=== PATIENT | male | born 1955 | race Caucasian/White ===

== ENCOUNTER 2016-08-31 13:27 | Inpatient (IN) | payer MEDICAID, OTHER ==
[2016-08-31 13:51] VITALS: BMI 37.7
[2016-08-31] MEDS ORDERED: SOLU-MEDROL 125 MG VIAL ONE (14:07)
[2016-08-31] MEDS ORDERED: DUONEB 0.5 MG/3 MG ONE (14:07)
[2016-08-31] MEDS ORDERED: SOLU-MEDROL 125 MG VIAL IVP ONE (14:10)
[2016-08-31] MEDS ORDERED: DUONEB 0.5 MG/3 MG NEB ONE (14:10)
--- NOTE | 2016-08-31 14:15 | DR.GENAD ---
HPI - Complaint/Symptoms Chief Complaint Doctors Comments: Patient complains of problems breathing for the past eight hours with SOB but denies fever, chills, nausea, or vomiting. States he has been having pain in his lungs in the xiphoid area. States he is a patient of Dr. Gallegos and he has had his flu shot last year but none this year. States he had an albuterol treatment before coming to the emergency room. He denies tobacco or alcohol usage. States he had a stroke in May 2016 and he has left sided weakness and cannot walk. Chief Complaint:: PT STATES " I HAVE BEEN SOB , AND MY NECK IS HURTING PT DENIES ANY INJURY 02 PLACED PER EMS 02 REMOVED. PT IS SATURATION IS 97 ON RA,, AT BEDSIDE NO DISTRESS NOTED.. - Nurses notes reviewed Nurses Notes Review: Yes - Source History Provided: Family Member, EMS - Mode of Arrival Mode of Arrival: Stretcher - Timing Onset of Chief Complaint: 08/31/16 Came on: Gradually - Duration Duration: Constant How lon Duration: Hours - Location Location: xiphoid discomfort - Severity Severity: Moderate - Modifying Factors Worsens:: cough Improves:: nothing PMH - PMH Past Medical History: Yes Past Medical History: Angina, Anxiety, Asthma, COPD, Coronary Artery Disease, CVA, Depression, Diabetes, Dyslipidemia, GERD, Hypertension, [place] Past Surgical History: Yes Surgical History: Angioplasty/Stents, Appendectomy - Family History History of Family Medical Conditions: Yes Family Medical History: Diabetes Mellitus, Cancer, [place], Coronary Artery Disease, Heart Failure, Hypertension - Social History Does patient currently use any type of tobacco product: No Have you used tobacco products in the last 12 months: No Type of Tobacco Use: None Does any household member use tobacco: No Alcohol Use: None Do you use any recreational Drugs:: No Lives With: Family Lives Where: Home - infectious screening In the last 2 months have you had wt loss of >10#?: NO Have you had fever, night sweats or hemotysis?: No Have you traveled outside the country in the last 6 months?: No Isolation: Standard ROS - Review of Systems Constitutional: No Symptoms Reported. negative: See HPI, Chills, Diaphoresis, Fever, Malaise, Weakness, Irritable, Fatigue, Loss of Appetite, Other Eyes: No Symptoms Reported ENTM: No Symptoms Reported. negative: See HPI, Ear Pain, Ear Discharge, Pulling on Ears, Hearing Loss, Nose Pain, Nose Discharge, Epistaxis, Nose Congestion, Mouth Pain, Mouth Swelling, Loose Teeth, Drooling, Throat Pain, Throat Swelling, Ear Foreign Body Respiratoy: Non-Productive Cough, Short of Breath, Wheezing. negative: No Symptoms Reported, See HPI, Productive Cough, Moist Cough, Dry Cough, Hacking Cough, Barking Cough, Brassy Cough, Orthopnea, Stridor, Hemoptysis, Other Cardiovascular: No Symptoms Reported, Chest Pain. negative: See HPI, Edema, Palpitations, Syncope, Cyanosis, Skin Mottling, Other Gastrointestinal/Abdominal: No Symptoms Reported. negative: See HPI, Abdominal Pain, Constipation, Diarrhea, Nausea, Vomiting, Food Intolerance, Other Genitourinary: No Symptoms Reported Neurological: No Symptoms Reported, Problems Walking (left side weak and cannot walk) Musculoskeletal: No Symptoms Reported Integumentary: No Symptoms Reported. negative: See HPI, Change in Color, Change in Hair/Nails, Dryness, Lesions, Lumps, Rash, Itching, Wound, Bruises, Juandice, Other Hematologic/Lymphatic: No Symptoms Reported. negative: See HPI, Anemia, Blood Clots, Easy Bleeding, Easy Bruising, Swollen Glands, Lymphadenopathy, Other Endocrine: No Symptoms Reported Psychiatric: No Symptoms Reported PE - Vital Signs Vitals: Temperature 97.7 F Pulse Rate 51 Respiratory Rate 20 Blood Pressure [Left Arm] 129/63 Blood Pressure 147/72 O2 Sat by Pulse Oximetry 94 - General Limitations: No Limitations General Appearance: Alert, In Distress (moderate), Obese. negative: In No Apparent Distress, Appears Intoxicated, Anxious, Lethargic, Obtunded, Cachectic , Other - Head Head Exam: Normal Inspection, Atraumatic, Normocephalic - Eyes Eye exam: Normal Appearance, PERRL, EOMI. negative: Scleral Icterus, Conjunctival Injection, Nystagmus, Miosis, Mydrasis, Periorbital Swelling, Periorbital Tenderness, Other - ENT ENT Exam: Normal Exam, Normal Oropharynx, Normal External Ear Exam, Mucous Membranes Moist, TM's Normal Bilaterally External Ear Exam: Normal External Inspection TM/Canal Exam: Bilateral Normal Nose Exam: Normal Nose Exam Mouth Exam: Normal Inspection. negative: Drooling, Trismus, Lip Swelling, Tongue Elevation, Tongue Swelling, Laceration, Other Throat Exam: Normal Inspection. negative: Tonsillar Erythema, Tonsillomegaly, Tonsillar Exudate, R Peritonsillar Mass, L Peritonsillar Mass, Muffled Voice, Other - Neck Neck Exam: Normal Inspection, Full ROM, Trachea Midline. negative: Tenderness, Meningismus, Lymphadenopathy, Thyromegaly, Other - Chest Chest Inspection: Normal Inspection, Symmetric Chest Wall Rise - Respiratory Respiratory Exam: Normal Lung Sounds Bilat Respiratory Exam: Bilateral Wheezing, Bilateral Decreased Breath Sounds - Cardiovascular Cardiovascular Exam: Regular Rate, Normal Rhythm, Normal Heart Sounds, Systolic Murmur - Abdominal Exam Abdominal Exam: Normal Inspection, Normal Bowel Sounds, Soft. negative: Distention, Tenderness, Guarding, Rebound, Rigidity, Dimnished Bowel Sounds, Hyperactive Bowel Sounds, Hypoactive Bowel Sounds, Organomegaly, Trauma, Incision, Ascites, Mass, Bruit, Pulsatile Mass, Hernia, Other Abdominal Tenderness: negative: RUQ, RLQ, LUQ, LLQ, Epigastrium, Suprapubic, Diffuse, Mild, Moderate, Severe, Other - Extremities Extremities Exam: Normal Inspection, Full ROM, Normal Capillary Refill. negative: Tenderness - Back Back Exam: Normal Inspection, Full ROM. negative: Tenderness, (R) CVA Tenderness, (L) CVA Tenderness, Muscle Spasm, Paraspinal Tenderness, Vertebral Tenderness, Rashes, (R) Sciatic Notch Tenderness, (L) Sciatic Notch Tendern, (R ) Straight Leg Raise, (L) Straight Leg Raise, Other - Neurologic Neurological Exam: Alert, Oriented X3, CN II-XII Intact, Motor Sensory Deficit ( left lower leg weakness strength 3/5 can lift leg off bend ), Reflexes Normal. negative: Normal Gait (gait not tested) - Psychiatric Psychiatric Exam: Normal Affect, Normal Mood - Skin Skin Exam: Warm, Dry, Intact, Normal Color. negative: Rash, Cyanosis, Diaphoresis, Erythema, Pallor, Mottled, Other Course - Consultation Called: 16:51 Call Returned: 16:51 (Dr. Madera to admit) - Education/Counseling Education/Counseling: Patient Educated On: Treatment, Diagnosis, Prognosis, Needs for Follow Up (Patient agrees to CTA of chest but went home and he is unable to sign due to stroke and weakness in his hands.) ROR - Labs Reviewed Laboratory Results Reviewed?: Yes (all labs and x-ray results reviewed and discussed with patient) Result Diagrams: 08/31/16 14:15 08/31/16 14:15 Laboratory: WBC 6.5 X10^3/uL (3.6-10.0) 08/31/16 14:15 RBC 4.08 X10^6/uL (4.7-6.0) L 08/31/16 14:15 Hgb 12.0 g/dL (13.5-18.0) L 08/31/16 14:15 Hct 35.7 % (42.0-54.0) L 08/31/16 14:15 MCV 87.4 fL (80.0-100.0) 08/31/16 14:15 MCH 29.5 pg (27.0-34.0) 08/31/16 14:15 MCHC 33.8 g/dL (33.0-35.0) 08/31/16 14:15 RDW 14.4 % (11.6-16.5) 08/31/16 14:15 Plt Count 154 X10^3/uL (150.0-450.0) 08/31/16 14:15 MPV 8.5 fL (7.4-11.0) 08/31/16 14:15 Neut % 49.3 % (42.0-75.0) 08/31/16 14:15 Lymph % 33.8 % (21.0-51.0) 08/31/16 14:15 [place] % 9.4 % (0.0-13.0) 08/31/16 14:15 Eos % 6.2 % (0.9-2.9) H 08/31/16 14:15 Baso % 1.3 % (0.2-1.0) H 08/31/16 14:15 Neut # 3.2 x10^3/uL (2.2-4.8) 08/31/16 14:15 Lymph # 2.2 X10^3/uL (1.3-2.9) 08/31/16 14:15 [place] # 0.6 x10^3/uL (0.3-0.8) 08/31/16 14:15 Eos # 0.4 x10^3/uL (0.0-0.2) H 08/31/16 14:15 Baso # 0.1 X10^3/uL (0.0-0.1) 08/31/16 14:15 Absolute Nucleated RBC 0.0 /100WBC 08/31/16 14:15 INR Target Range - 08/31/16 14:15 INR 0.96 (0.8-1.3) 08/31/16 14:15 PTT 22.4 SECONDS (22.9-36.5) L 08/31/16 14:15 PTT Comment - 08/31/16 14:15 D-Dimer 833 ng/mL (0-400) H* 08/31/16 14:05 Sodium 143 mmol/L (136-145) 08/31/16 14:15 Corrected Sodium TNP 08/31/16 14:15 Potassium 3.7 mmol/L (3.5-5.1) 08/31/16 14:15 Chloride 105 mmol/L (98-107) 08/31/16 14:15 Carbon Dioxide 26.8 mmol/L (21-32) 08/31/16 14:15 BUN 17 mg/dL (7-18) 08/31/16 14:15 Creatinine 1.29 mg/dL (0.70-1.30) 08/31/16 14:15 Est GFR (MDRD) Af Amer > 60 (>60) 08/31/16 14:15 Est GFR (MDRD) Non-Af > 60 (>60) 08/31/16 14:15 Glucose 90 mg/dL (65-99) 08/31/16 14:15 Calcium 8.6 mg/dL (8.5-10.1) 08/31/16 14:15 Corrected Calcium TNP 08/31/16 14:15 Magnesium 1.8 mg/dL (1.7-2.9) 08/31/16 14:15 Total Bilirubin 0.40 mg/dL (0.2-1.0) 08/31/16 14:15 AST 14 Units/L (15-37) L 08/31/16 14:15 ALT 22 Units/L (12-78) 08/31/16 14:15 Alkaline Phosphatase 58 Units/L (46-116) 08/31/16 14:15 Creatine Kinase 86 Units/L (39-308) 08/31/16 14:15 CK-MB (CK-2) 1.4 ng/mL (0-4.0) 08/31/16 14:15 CK/CKMB % Calc 1.6 % (<4) 08/31/16 14:15 Troponin I < 0.02 ng/mL (0-1.5) 08/31/16 14:15 B-Natriuretic Peptide 184 pg/mL (0-79) H 08/31/16 14:05 Total Protein 7.2 g/dL (6.4-8.2) 08/31/16 14:15 Albumin 3.6 g/dL (3.4-5.0) 08/31/16 14:15 Globulin 3.6 g/dL (2.5-4.5) 08/31/16 14:15 Albumin/Globulin Ratio 1.0 Ratio (1.1-2.1) L 08/31/16 14:15 - XRAY XRAY Interpreted by: Radiologist (CXR: cardiomegaly; no evidence of bacterial pneumonia) XRAY Findings: CTA: No evidence of pulmonary embolism. Mild cardiomegaly - EKG Rate: 55 [place]: Normal Rhythm: SB Block: None Hypertrophy: LVH ST: Nonsp - Diagnosis Discharge Problem: Respiratory distress, COPD exacerbation, Congestive heart disease, Sinus bradycardia - Discharge Plan Disposition: ADMITTED INPATIENT Condition: Stable - Follow ups/Referrals Follow ups/Referrals: RONI GALLEGOS [Primary Care Provider] - 3 days - Instructions
[2016-08-31] MEDS: NS 1000 ML 1,000 ML IV SCH (14:22)
[2016-08-31 14:34] LABS: BASOPHILS # (AUTO) 0.1 X10^3/uL (0.0-0.1); BASOPHILS % (AUTO) 1.3 % (0.2-1.0); EOSINOPHILS # (AUTO) 0.4 x10^3/uL (0.0-0.2); EOSINOPHILS % (AUTO) 6.2 % (0.9-2.9); HEMATOCRIT 35.7 % (42.0-54.0); LYMPHOCYTES # (AUTO) 2.2 X10^3/uL (1.3-2.9); LYMPHOCYTES % (AUTO) 33.8 % (21.0-51.0); MEAN CORPUSCULAR HEMOGLOBIN 29.5 pg (27.0-34.0); MEAN CORPUSCULAR HGB CONC 33.8 g/dL (33.0-35.0); MEAN CORPUSCULAR VOLUME 87.4 fL (80.0-100.0); MEAN PLATELET VOLUME 8.5 fL (7.4-11.0); MONOCYTES # (AUTO) 0.6 x10^3/uL (0.3-0.8); MONOCYTES % (AUTO) 9.4 % (0.0-13.0); NEUTROPHILS # (AUTO) 3.2 x10^3/uL (2.2-4.8); NEUTROPHILS % (AUTO) 49.3 % (42.0-75.0); PLATELET COUNT 154 X10^3/uL (150.0-450.0); RED BLOOD COUNT 4.08 X10^6/uL (4.7-6.0); RED CELL DISTRIBUTION WIDTH 14.4 % (11.6-16.5); WHITE BLOOD COUNT 6.5 X10^3/uL (3.6-10.0)
--- NOTE | 2016-08-31 14:58 | RAD ---
HISTORY: Shortness of breath, chest pain Study: AP chest obtained 2:39 p.m. Comparison: June 06, 2016 Findings: The trachea is midline . There is no widening or shift of mediastinum. The heart is mildly enlarged. The costophrenic angles are sharp and both diaphragms are adequately maintained. The lungs are adeq uately aerated. Osseous structures are within normal limits for the patient's age prominent central pulmonary vessels are noted consistent with mild chronic cardiac decompensation P IMPRESSION: 1. Mild cardiomegaly no evidence of bacterial pneumonia. Prominent central pulmonary vessels consist ent with mild chronic cardiac decompensation. Reported By:
[2016-08-31] MEDS ORDERED: LASIX IVP ONE ×2 (15:04→15:18)
[2016-08-31 15:11] LABS: BLOOD UREA NITROGEN 17 mg/dL (7-18); CALCIUM 8.6 mg/dL (8.5-10.1); CARBON DIOXIDE 26.8 mmol/L (21-32); CHLORIDE 105 mmol/L (98-107); CREATININE 1.29 mg/dL (0.70-1.30); GLUCOSE 90 mg/dL (65-99); SODIUM 143 mmol/L (136-145); TROPONIN I < 0.02 ng/mL (0-1.5); eGFR BLACK RACES > 60 (>60); eGFR NON BLACK RACES > 60 (>60)
[2016-08-31 15:15] LABS: ALANINE AMINOTRANSFERASE 22 Units/L (12-78); ALBUMIN 3.6 g/dL (3.4-5.0); ALKALINE PHOSPHATASE 58 Units/L (46-116); ASPARTATE AMINO TRANSFERASE 14 Units/L (15-37); CKMB % 1.6 % (<4); CREATINE KINASE 86 Units/L (39-308); CREATINE KINASE MB 1.4 ng/mL (0-4.0); MAGNESIUM 1.8 mg/dL (1.7-2.9); TOTAL PROTEIN 7.2 g/dL (6.4-8.2)
[2016-08-31 15:58] LABS: B-TYPE NATRIURETIC PEPTIDE 184 pg/mL (0-79)
[2016-08-31] MEDS ORDERED: NS 100 ML IV + SPIKE MINIBAG* 100 ML IV ONE (16:36)
--- NOTE | 2016-08-31 17:47 | CT ---
Clinical history: Difficulty breathing, shortness of breath, wheezing Exam: CTA chest Total exam DLP: 760 Technique: Following a power injected bolus of 75 cc of Omnipaque 350 axial images were obtained at 3 mm slice thickness contiguous 3 mm intervals from above the apices to below the diaphragm. MIPS im ages were obtained in the sagittal and axial projections. Findings: Mediastinum and gisele call the trachea is midline the thyroid gland appears intact. Atherosclerosis o f the aortic arch is noted. Central pulmonary arteries enhance adequately bilaterally. There is no e vidence of large central pulmonary embolus. The heart is top normal size no pericardial effusions ar e seen. Upper abdomen: Visualized portions of the liver, spleen, stomach, gallbladder, pancreas, adrenal gla nds, and upper poles of both kidneys appear within normal limits. Atherosclerosis of the abdominal a aj is noted. lung parenchyma and pleura: The pulmonary vascular pattern appears intact. No lobar consolidation is identified no air bronchograms are present. Osseous structures appear within limits patient's age. Impression: No evidence of large central pulmonary embolus. Moderate atherosclerosis the coronary ar teries. Mild cardiomegaly. Reported By:
[2016-08-31] MEDS: DUONEB 0.5 MG/3 MG NEB ONE ×2 (18:57→19:00)
[2016-08-31] MEDS: ROCEPHIN VIAL 1 GM 1 GM in NS 50 ML IV + SPIKE MINIBAG* 50 ML IV SCH (19:31)
[2016-08-31] MEDS: LEVAQUIN PREMIX IV 500 MG 500 MG/100 ML BAG IV SCH (19:33)
[2016-08-31] MEDS: DUONEB 0.5 MG/3 MG NEB SCH (21:07)
[2016-08-31] MEDS: TORADOL 30 MG VIAL IVP PRN (22:45)
[2016-09-01] MEDS: DUONEB 0.5 MG/3 MG NEB SCH ×6 (00:30→20:26)
[2016-09-01] MEDS: NS 1000 ML 1,000 ML IV SCH ×3 (05:12→20:58)
[2016-09-01 06:17] LABS: BLOOD UREA NITROGEN 21 mg/dL (7-18); CALCIUM 8.5 mg/dL (8.5-10.1); CARBON DIOXIDE 25.5 mmol/L (21-32); CHLORIDE 105 mmol/L (98-107); COR NA(FOR HYPERGLY) 146 mmol/L (136-145); CREATININE 1.46 mg/dL (0.70-1.30); GLUCOSE 303 mg/dL (65-99); SODIUM 141 mmol/L (136-145); eGFR BLACK RACES > 60 (>60); eGFR NON BLACK RACES 53 (>60)
[2016-09-01] MEDS: HUMULIN R SUBCUT PRN ×4 (07:06→21:47)
[2016-09-01 08:10] LABS: D DIMER 833 ng/mL (0-400)
[2016-09-01] MEDS: LEVAQUIN PREMIX IV 500 MG 500 MG/100 ML BAG IV SCH (09:03)
[2016-09-01] MEDS: SOLU-MEDROL 40 MG VIAL IVP SCH ×2 (09:03→17:09)
[2016-09-01] MEDS: ROCEPHIN VIAL 1 GM 1 GM in NS 50 ML IV + SPIKE MINIBAG* 50 ML IV SCH (09:04)
[2016-09-01 09:22] LABS: BILIRUBIN,URINE NEGATIVE (NEGATIVE); BLOOD/HEMOGLOBIN,URINE NEGATIVE (NEGATIVE); GLUCOSE, URINE 2+ (NEGATIVE); KETONES,URINE NEGATIVE (NEGATIVE); LEUKOCYTE ESTERASE ,URINE 3+ (NEGATIVE); NITRITES,URINE NEGATIVE (NEGATIVE); PROTEIN,URINE 2+ (NEGATIVE); UROBILINOGEN,URINE NORMAL (NORMAL)
[2016-09-01 09:43] LABS: APPEARANCE,URINE SLIGHTLY HAZY (CLEAR); COLOR,URINE YELLOW (YELLOW)
[2016-09-01 09:44] LABS: RBC,URINE RARE /HPF (NEGATIVE)
[2016-09-01 09:46] LABS: AMORPHOUS SEDIMENT,UR 2+ /HPF (NEGATIVE); BACTERIA,URINE NEGATIVE /HPF (NEGATIVE); MUCUS,URINE MODERATE /HPF (NEGATIVE); SQUAMOUS EPITHELIAL CELL,UR RARE /HPF (NEGATIVE)
[2016-09-01] MEDS: TORADOL 30 MG VIAL IVP PRN (11:23)
[2016-09-01] MEDS ORDERED: [UNRECOGNIZED DRUG - OTHER] PO SCH (12:15)
[2016-09-01] MEDS ORDERED: [UNRECOGNIZED DRUG - OTHER] PO SCH (12:15)
[2016-09-01] MEDS ORDERED: [UNRECOGNIZED DRUG - OTHER] PO SCH (12:15)
[2016-09-01] MEDS ORDERED: CATAPRES-TTS-3 TD SCH (13:00)
[2016-09-01] MEDS ORDERED: PLAVIX PO SCH (13:00)
[2016-09-01] MEDS: COZAAR PO SCH (13:55)
[2016-09-01] MEDS: COREG TAB 25 MG PO SCH ×2 (13:56→21:44)
[2016-09-01] MEDS: APRESOLINE TAB 25 MG PO SCH ×2 (13:56→21:44)
[2016-09-01] MEDS ORDERED: NEURONTIN CAP 100 MG PO SCH (14:00)
[2016-09-01] MEDS: ECOTRIN TAB 325 MG PO SCH (14:43)
[2016-09-01] MEDS: MINOXIDIL PO SCH ×2 (14:44→21:46)
[2016-09-01] MEDS: CARDIZEM CD 240 MG PO SCH (14:44)
[2016-09-01] MEDS: CELEBREX PO SCH (14:44)
[2016-09-01] MEDS ORDERED: NITROSTAT SL PRN (15:40)
[2016-09-01] MEDS ORDERED: NORCO 10/325 TAB PO PRN (15:42)
[2016-09-01 16:33] LABS: CKMB % 1.6 % (<4); CREATINE KINASE 90 Units/L (39-308); CREATINE KINASE MB 1.4 ng/mL (0-4.0); TROPONIN I < 0.02 ng/mL (0-1.5)
[2016-09-01] MEDS: SNACK - Diabetic Appropriate PO SCH (20:58)
[2016-09-01 20:59] LABS: CKMB % 1.7 % (<4); CREATINE KINASE MB 1.5 ng/mL (0-4.0); TROPONIN I 0.03 ng/mL (0-1.5)
[2016-09-01] MEDS ORDERED: [UNRECOGNIZED DRUG - OTHER] PO SCH (21:00)
[2016-09-01] MEDS ORDERED: ZOCOR TAB 20 MG PO SCH (21:00)
[2016-09-01] MEDS: CARDURA PO SCH (21:45)
[2016-09-01] MEDS: CELEXA PO SCH (21:45)
[2016-09-01] MEDS: GLUCOTROL XL PO SCH (21:46)
[2016-09-01] MEDS: FLOMAX PO SCH (21:46)
[2016-09-02 00:58] LABS: CKMB % 2.3 % (<4); CREATINE KINASE MB 1.8 ng/mL (0-4.0); TROPONIN I 0.04 ng/mL (0-1.5)
[2016-09-02] MEDS: DUONEB 0.5 MG/3 MG NEB SCH ×6 (01:00→20:22)
[2016-09-02] MEDS: SOLU-MEDROL 40 MG VIAL IVP SCH ×3 (01:42→21:35)
[2016-09-02 03:43] LABS: BASOPHILS % (AUTO) 0.3 % (0.2-1.0); EOSINOPHILS % (AUTO) 0.1 % (0.9-2.9); HEMATOCRIT 34.3 % (42.0-54.0); HEMOGLOBIN 11.4 g/dL (13.5-18.0); LYMPHOCYTES % (AUTO) 8.1 % (21.0-51.0); MEAN CORPUSCULAR HEMOGLOBIN 29.3 pg (27.0-34.0); MEAN CORPUSCULAR HGB CONC 33.3 g/dL (33.0-35.0); MEAN CORPUSCULAR VOLUME 88.2 fL (80.0-100.0); MEAN PLATELET VOLUME 8.8 fL (7.4-11.0); MONOCYTES # (AUTO) 0.3 x10^3/uL (0.3-0.8); MONOCYTES % (AUTO) 2.3 % (0.0-13.0); NEUTROPHILS # (AUTO) 10.8 x10^3/uL (2.2-4.8); NEUTROPHILS % (AUTO) 89.2 % (42.0-75.0); PLATELET COUNT 152 X10^3/uL (150.0-450.0); RED CELL DISTRIBUTION WIDTH 15.1 % (11.6-16.5); WHITE BLOOD COUNT 12.1 X10^3/uL (3.6-10.0)
[2016-09-02 04:06] LABS: ALANINE AMINOTRANSFERASE 23 Units/L (12-78); ALKALINE PHOSPHATASE 48 Units/L (46-116); ASPARTATE AMINO TRANSFERASE 15 Units/L (15-37); BLOOD UREA NITROGEN 22 mg/dL (7-18); CALCIUM 8.2 mg/dL (8.5-10.1); CARBON DIOXIDE 24.8 mmol/L (21-32); CHLORIDE 106 mmol/L (98-107); CKMB % 2.5 % (<4); COR NA(FOR HYPERGLY) 143 mmol/L (136-145); CREATINE KINASE 69 Units/L (39-308); CREATINE KINASE MB 1.7 ng/mL (0-4.0); CREATININE 1.36 mg/dL (0.70-1.30); GLUCOSE 204 mg/dL (65-99); SODIUM 141 mmol/L (136-145); TOTAL PROTEIN 6.4 g/dL (6.4-8.2); TROPONIN I 0.03 ng/mL (0-1.5); eGFR BLACK RACES > 60 (>60); eGFR NON BLACK RACES 57 (>60)
[2016-09-02] MEDS: APRESOLINE TAB 25 MG PO SCH ×3 (05:58→21:39)
[2016-09-02] MEDS: HUMULIN R SUBCUT PRN ×3 (06:12→21:49)
[2016-09-02] MEDS: LEVAQUIN PREMIX IV 500 MG 500 MG/100 ML BAG IV SCH (09:28)
[2016-09-02] MEDS: ROCEPHIN VIAL 1 GM 1 GM in NS 50 ML IV + SPIKE MINIBAG* 50 ML IV SCH (09:28)
[2016-09-02] MEDS: COZAAR PO SCH (09:29)
[2016-09-02] MEDS: CARDIZEM CD 240 MG PO SCH (09:29)
[2016-09-02] MEDS: CELEBREX PO SCH (09:29)
[2016-09-02] MEDS: ECOTRIN TAB 325 MG PO SCH (09:29)
[2016-09-02] MEDS: COREG TAB 25 MG PO SCH ×2 (09:30→21:34)
[2016-09-02] MEDS: MINOXIDIL PO SCH ×2 (09:30→21:34)
[2016-09-02] MEDS: GLUCOTROL XL PO SCH ×2 (09:30→21:43)
[2016-09-02] MEDS: NS 1000 ML 1,000 ML IV SCH ×3 (09:40→23:53)
--- NOTE | 2016-09-02 11:37 | DR.H&P ---
H&P - History & Physical for Day of: H&P Date: 08/31/16 - Chief Complaint Chief Complaint: The patient is a 60-year-old white male who presented to the [facility] emergency room complaining of minimal cough and congestion and progressive shortness of breath for the past 1-2 days. Patient's chest x-ray revealed no acute infiltrates and minimal pulmonary edema. The patient has a history of congestive heart fair, coronary artery disease and COPD as well as other multiple medical problemssee past medical history below. The patient had taken a breathing treatment at home prior to arrival in the emergency room setting with no improvement in his shortness of breath. Patient started on IV Solu-Medrol, IV antibiotics and albuterol and Atrovent jet nebulizer treatments. The patient also complained of chest discomfort which was also worse with cough and deep inspiration. Patient's initial EKG revealed nonspecific ST-T wave changes. Patient was subsequently admitted for further workup. - Allergies Allergies/Adverse Reactions: Allergies Allergy/AdvReac Type Severity Reaction Status Date / Time Beeswax Allergy Verified 08/31/16 13:40 Morphine Allergy Verified 07/11/16 15:34 - Past Medical History Past Medical History: Angina, Anxiety, Asthma, COPD, Coronary Artery Disease, CVA, Depression, Diabetes, Dyslipidemia, GERD, Hypertension, [place] Additional Medical History: Diabetic Neuropathy, BPH, Left Testicular Lump, Back pain with Herniated Disc, Pinched Nerves, Chronic pain, Cataracts, Ear Infections, Valvular Heart Disease, Emphysema, Sleep Apnea, GI Ulcer, UTI's, Gout, Back Pain - Past Surgical History Surgical History: Angioplasty/Stents, Appendectomy Additional Surgical History: Right Inguinal Hernia Repair - Family History Family Medical History: Diabetes Mellitus, Cancer, [place], Coronary Artery Disease, Heart Failure, Hypertension - Social History Does patient currently use any type of tobacco product: No Have you used tobacco products in the last 12 months: No Type of Tobacco Use: None Does any household member use tobacco: No Alcohol Use: None Drug Use: None - Medications Home Medications: Amitriptyline HCl [ELAVIL 25 MG *] 25 mg PO HS 09/01/16 [History Confirmed 09/01] Citalopram 20 mg Tab [CELEXA 20 MG *] 40 mg PO HS 09/01/16 [History Confirmed ] - Review of Systems Constitutional: See HPI Eyes: No Symptoms Reported ENT: No Symptoms Reported Respiratory: See HPI Cardiovascular: Chest Pain Gastrointestinal: No Symptoms Reported Genitourinary: No Symptoms Reported Musculoskeletal: No Symptoms Reported Skin: No Symptoms Reported Neurological: No Symptoms Reported - Physical Exam Vital Signs: Temperature 99.2 F Pulse Rate [Left Brachial] 86 Pulse Rate 83 Respiratory Rate 18 Blood Pressure [Left Arm] 136/71 O2 Sat by Pulse Oximetry 96 Oriented: Normal Eyes: Normal Ear: Normal Nose: Normal Throat: Normal Respiratory: Rhonchi Throughout, Wheezes Throughout, RLL Rales, LLL Rales Cardiovascular: Normal : Normal Auscultation: Bowel Sounds: Normal Palpation: Normal Tenderness: Normal Skin: Normal Musculoskeletal: Normal Psychiatric: Normal Mood Description: Calm Affect: Normal Speech Pattern: Clear - Assessment/Plan (1) Acute respiratory distress Status: Acute Plan: 1. Admit for outpatient observation. 2. Fluids. 3. O2 at 2 L/m per nasal cannula. 4. Chest x-ray. 5. CTA of the chest to rule out pulmonary embolus. 6. UA C&S. 7. Sputum culture sensitivity. 8. CMP and CBC. 9. Serial EKGs and cardiac enzymes. 10. Albuterol and Atrovent jet nebulized treatment every 6 hours and every 4 hours when necessary. 11. Levaquin 500 milligrams IV daily. 12. Rocephin 1 g IV daily. 13. Solu-Medrol 80 mg IV every 8 hours. 14. Continue home medications. 15. For further orders to chart (2) Acute exacerbation of chronic obstructive pulmonary disease (COPD) Status: Acute Plan: As above (3) Acute exacerbation of CHF (congestive heart failure) Qualifiers: Congestive heart failure type: C Status: Acute Plan: as above (4) Acute bronchitis Qualifiers: Bronchitis organism: B Status: Acute Plan: as above
--- NOTE | 2016-09-02 11:43 | PCM.PROG ---
Progress Note - Progress Note for Day of Date: 09/01/16 - Subjective Subjective: The patient is a 60-year-old white male who presented to the [facility] emergency room complaining of minimal cough and congestion and progressive shortness of breath for the past 1-2 days. Pt was admitted on the evening of 08/31. Patient's chest x-ray revealed no acute infiltrates and minimal pulmonary edema. The patient has a history of congestive heart fair, coronary artery disease and COPD as well as other multiple medical problemssee past medical history below. The patient had taken a breathing treatment at home prior to arrival in the emergency room setting with no improvement in his shortness of breath. Patient started on IV Solu-Medrol, IV antibiotics and albuterol and Atrovent jet nebulizer treatments. The patient also complained of chest discomfort which was also worse with cough and deep inspiration. Patient's initial EKG revealed nonspecific ST-T wave changes. Pt states his SOB has improved. - Past Medical Family Social History Past Med/Fam/Surg Hx: No changes since H&P Allergies: Allergies Beeswax Allergy (Verified 08/31/16 13:40) Morphine Allergy (Verified 07/11/16 15:34) - Review of Systems ROS: No change since H&P - Vital Signs and I&O's Vital Signs: Temperature 99.2 F Pulse Rate [Left Brachial] 86 Pulse Rate 83 Respiratory Rate 18 Blood Pressure [Left Arm] 136/71 O2 Sat by Pulse Oximetry 96 Intake and Output: Intake & Output 08/30/16 08/31/16 09/01/16 09/02/16 11:59 11:59 11:59 11:59 Intake Total 222 2177 Output Total 700 1575 Balance -478 602 - Physical Exam Oriented: Normal Eyes: Normal Ear: Normal Nose: Normal Throat: Normal Respiratory: Generalized, Wheezes, Rhonchi Cardiovascular: Normal : Normal Auscultation: Bowel Sounds: Normal Tenderness: Normal Skin: Normal Musculoskeletal: Normal Psychiatric: Normal Mood Description: Calm Affect: Normal Speech Pattern: Clear - Laboratory and Diagnostics Result Diagrams: 09/02/16 03:35 09/02/16 03:35 Labs: Laboratory WBC 12.1 X10^3/uL (3.6-10.0) H 09/02/16 03:35 RBC 3.90 X10^6/uL (4.7-6.0) L 04/10/17 03:35 Hgb 11.4 g/dL (13.5-18.0) L 09/02/16 03:35 Hct 34.3 % (42.0-54.0) L 09/02/16 03:35 MCV 88.2 fL (80.0-100.0) 09/02/16 03:35 MCH 29.3 pg (27.0-34.0) 09/02/16 03:35 MCHC 33.3 g/dL (33.0-35.0) 09/02/16 03:35 RDW 15.1 % (11.6-16.5) 09/02/16 03:35 Plt Count 152 X10^3/uL (150.0-450.0) 09/02/16 03:35 MPV 8.8 fL (7.4-11.0) 09/02/16 03:35 Neut % 89.2 % (42.0-75.0) H 09/02/16 03:35 Lymph % 8.1 % (21.0-51.0) L 09/02/16 03:35 [place] % 2.3 % (0.0-13.0) 09/02/16 03:35 Eos % 0.1 % (0.9-2.9) L 09/02/16 03:35 Baso % 0.3 % (0.2-1.0) 09/02/16 03:35 Neut # 10.8 x10^3/uL (2.2-4.8) H 09/02/16 03:35 Lymph # 1.0 X10^3/uL (1.3-2.9) L 09/02/16 03:35 [place] # 0.3 x10^3/uL (0.3-0.8) 09/02/16 03:35 Eos # 0.0 x10^3/uL (0.0-0.2) 09/02/16 03:35 Baso # 0.0 X10^3/uL (0.0-0.1) 09/02/16 03:35 Absolute Nucleated RBC 0.0 /100WBC 09/02/16 03:35 INR Target Range - 08/31/16 14:15 INR 0.96 (0.8-1.3) 08/31/16 14:15 PTT 22.4 SECONDS (22.9-36.5) L 08/31/16 14:15 PTT Comment - 08/31/16 14:15 D-Dimer 833 ng/mL (0-400) H* 08/31/16 14:05 Sodium 141 mmol/L (136-145) 09/02/16 03:35 Corrected Sodium 143 mmol/L (136-145) 09/02/16 03:35 Potassium 3.5 mmol/L (3.5-5.1) 09/02/16 03:35 Chloride 106 mmol/L (98-107) 09/02/16 03:35 Carbon Dioxide 24.8 mmol/L (21-32) 09/02/16 03:35 BUN 22 mg/dL (7-18) H 09/02/16 03:35 Creatinine 1.36 mg/dL (0.70-1.30) H 09/02/16 03:35 Est GFR (MDRD) Af Amer > 60 (>60) 09/02/16 03:35 Est GFR (MDRD) Non-Af 57 (>60) L 09/02/16 03:35 Glucose 204 mg/dL (65-99) H 09/02/16 03:35 Calcium 8.2 mg/dL (8.5-10.1) L 09/02/16 03:35 Corrected Calcium 9.0 mg/dL (8.5-10.1) 09/02/16 03:35 Magnesium 1.8 mg/dL (1.7-2.9) 08/31/16 14:15 Total Bilirubin 0.20 mg/dL (0.2-1.0) 09/02/16 03:35 AST 15 Units/L (15-37) 09/02/16 03:35 ALT 23 Units/L (12-78) 09/02/16 03:35 Alkaline Phosphatase 48 Units/L (46-116) 09/02/16 03:35 Creatine Kinase 69 Units/L (39-308) 09/02/16 03:35 CK-MB (CK-2) 1.7 ng/mL (0-4.0) 09/02/16 03:35 CK/CKMB % Calc 2.5 % (<4) 09/02/16 03:35 Troponin I 0.03 ng/mL (0-1.5) 09/02/16 03:35 B-Natriuretic Peptide 184 pg/mL (0-79) H 08/31/16 14:05 Total Protein 6.4 g/dL (6.4-8.2) 09/02/16 03:35 Albumin 3.0 g/dL (3.4-5.0) L 09/02/16 03:35 Globulin 3.4 g/dL (2.5-4.5) 09/02/16 03:35 Albumin/Globulin Ratio 0.9 Ratio (1.1-2.1) L 09/02/16 03:35 Specimen Type Clean catch urine 09/01/16 09:07 Urine Color Yellow (YELLOW) 09/01/16 09:07 Urine Appearance Slightly hazy (CLEAR) 09/01/16 09:07 Urine pH 5.0 (5.0 - 8.0) 09/01/16 09:07 Ur Specific [place] 1.015 (1.000-1.030) 09/01/16 09:07 Urine Protein 2+ (NEGATIVE) 09/01/16 09:07 Urine Glucose (UA) 2+ (NEGATIVE) 09/01/16 09:07 Urine Ketones Negative (NEGATIVE) 09/01/16 09:07 Urine Occult Blood Negative (NEGATIVE) 09/01/16 09:07 Urine Nitrite Negative (NEGATIVE) 09/01/16 09:07 Urine Bilirubin Negative (NEGATIVE) 09/01/16 09:07 Urine Urobilinogen Normal (NORMAL) 09/01/16 09:07 Ur Leukocyte Esterase 3+ (NEGATIVE) 09/01/16 09:07 Urine RBC Rare /HPF (NEGATIVE) 09/01/16 09:07 Urine WBC 08 - 12 with clumps /HPF (NEGATIVE) 09/01/16 09:07 Ur Squamous Epith Cells Rare /HPF (NEGATIVE) 09/01/16 09:07 Amorphous Sediment 2+ /HPF (NEGATIVE) 09/01/16 09:07 Urine Bacteria Negative /HPF (NEGATIVE) 09/01/16 09:07 Urine Mucus Moderate /HPF (NEGATIVE) 09/01/16 09:07 Ur Culture Indicated? Yes/culture set up 09/01/16 09:07 - Plan (1) Acute respiratory distress Status: Acute Plan: 1. Repeat CXR in am. 2. Telemetry. 3. O2 at 2 L/m per nasal cannula. 4. UA C&S pending. 5. Sputum culture sensitivity - pending. 6. CMP and CBC. 7. Serial EKGs and cardiac enzymes. 8. Albuterol and Atrovent jet nebulized treatment every 6 hours and every 4 hours when necessary. 9. Levaquin 500 milligrams IV daily. 10. Rocephin 1 g IV daily. 11. Solu- Medrol 80 mg IV every 8 hours. 12. Continue home medications. 13. For further orders to chart (2) Acute exacerbation of chronic obstructive pulmonary disease (COPD) Status: Acute Plan: As above (3) Acute exacerbation of CHF (congestive heart failure) Status: Acute Qualifiers: Congestive heart failure type: C Plan: as above (4) Acute bronchitis Status: Acute Qualifiers: Bronchitis organism: B Plan: as above
--- NOTE | 2016-09-02 16:26 | PCM.PROG ---
Progress Note - Progress Note for Day of Date: 09/02/16 - Subjective Subjective: The patient is a 60-year-old white male who presented to the [facility] emergency room complaining of minimal cough and congestion and progressive shortness of breath for the past 1-2 days. Pt was admitted on the evening of 08/31. Patient's chest x-ray revealed no acute infiltrates and minimal pulmonary edema. The patient has a history of congestive heart fair, coronary artery disease and COPD as well as other multiple medical problemssee past medical history below. The patient had taken a breathing treatment at home prior to arrival in the emergency room setting with no improvement in his shortness of breath. Patient started on IV Solu-Medrol, IV antibiotics and albuterol and Atrovent jet nebulizer treatments. The patient also complained of chest discomfort which was also worse with cough and deep inspiration. Patient's initial EKG revealed nonspecific ST-T wave changes. Pt co improving SOB and continued mild wheezing, discussed need for future cardiac evaluation when resp status has improved. - Past Medical Family Social History Past Med/Fam/Surg Hx: No changes since H&P Allergies: Allergies Beeswax Allergy (Verified 08/31/16 13:40) Morphine Allergy (Verified 07/11/16 15:34) - Review of Systems ROS: No change since H&P - Vital Signs and I&O's Vital Signs: Temperature 96.2 F Pulse Rate [Left Brachial] 72 Pulse Rate 83 Respiratory Rate 22 Blood Pressure [Left Arm] 144/76 O2 Sat by Pulse Oximetry 96 Intake and Output: Intake & Output 08/31/16 09/01/16 09/02/16 09/03/16 11:59 11:59 11:59 11:59 Intake Total 222 2177 Output Total 700 1575 Balance -478 602 - Physical Exam Oriented: Normal Eyes: Normal Ear: Normal Nose: Normal Throat: Normal Respiratory: Generalized, Wheezes, Rhonchi Cardiovascular: Normal : Normal Auscultation: Bowel Sounds: Normal Tenderness: Normal Skin: Normal Musculoskeletal: Normal Psychiatric: Normal Mood Description: Calm Affect: Normal Speech Pattern: Clear - Laboratory and Diagnostics Result Diagrams: 09/02/16 03:35 09/02/16 03:35 Labs: 09/01/16 09:07 Urine,Clean Catch Urine Culture - Preliminary Laboratory WBC 12.1 X10^3/uL (3.6-10.0) H 09/02/16 03:35 RBC 3.90 X10^6/uL (4.7-6.0) L 09/02/16 03:35 Hgb 11.4 g/dL (13.5-18.0) L 09/02/16 03:35 Hct 34.3 % (42.0-54.0) L 09/02/16 03:35 MCV 88.2 fL (80.0-100.0) 09/02/16 03:35 MCH 29.3 pg (27.0-34.0) 09/02/16 03:35 MCHC 33.3 g/dL (33.0-35.0) 09/02/16 03:35 RDW 15.1 % (11.6-16.5) 09/02/16 03:35 Plt Count 152 X10^3/uL (150.0-450.0) 09/02/16 03:35 MPV 8.8 fL (7.4-11.0) 09/02/16 03:35 Neut % 89.2 % (42.0-75.0) H 09/02/16 03:35 Lymph % 8.1 % (21.0-51.0) L 09/02/16 03:35 [place] % 2.3 % (0.0-13.0) 09/02/16 03:35 Eos % 0.1 % (0.9-2.9) L 09/02/16 03:35 Baso % 0.3 % (0.2-1.0) 09/02/16 03:35 Neut # 10.8 x10^3/uL (2.2-4.8) H 09/02/16 03:35 Lymph # 1.0 X10^3/uL (1.3-2.9) L 09/02/16 03:35 [place] # 0.3 x10^3/uL (0.3-0.8) 09/02/16 03:35 Eos # 0.0 x10^3/uL (0.0-0.2) 09/02/16 03:35 Baso # 0.0 X10^3/uL (0.0-0.1) 09/02/16 03:35 Absolute Nucleated RBC 0.0 /100WBC 09/02/16 03:35 INR Target Range - 08/31/16 14:15 INR 0.96 (0.8-1.3) 08/31/16 14:15 PTT 22.4 SECONDS (22.9-36.5) L 08/31/16 14:15 PTT Comment - 08/31/16 14:15 D-Dimer 833 ng/mL (0-400) H* 08/31/16 14:05 Sodium 141 mmol/L (136-145) 09/02/16 03:35 Corrected Sodium 143 mmol/L (136-145) 09/02/16 03:35 Potassium 3.5 mmol/L (3.5-5.1) 09/02/16 03:35 Chloride 106 mmol/L (98-107) 09/02/16 03:35 Carbon Dioxide 24.8 mmol/L (21-32) 09/02/16 03:35 BUN 22 mg/dL (7-18) H 09/02/16 03:35 Creatinine 1.36 mg/dL (0.70-1.30) H 09/02/16 03:35 Est GFR (MDRD) Af Amer > 60 (>60) 09/02/16 03:35 Est GFR (MDRD) Non-Af 57 (>60) L 09/02/16 03:35 Glucose 204 mg/dL (65-99) H 09/02/16 03:35 Calcium 8.2 mg/dL (8.5-10.1) L 09/02/16 03:35 Corrected Calcium 9.0 mg/dL (8.5-10.1) 09/02/16 03:35 Magnesium 1.8 mg/dL (1.7-2.9) 08/31/16 14:15 Total Bilirubin 0.20 mg/dL (0.2-1.0) 09/02/16 03:35 AST 15 Units/L (15-37) 09/02/16 03:35 ALT 23 Units/L (12-78) 09/02/16 03:35 Alkaline Phosphatase 48 Units/L (46-116) 09/02/16 03:35 Creatine Kinase 69 Units/L (39-308) 09/02/16 03:35 CK-MB (CK-2) 1.7 ng/mL (0-4.0) 09/02/16 03:35 CK/CKMB % Calc 2.5 % (<4) 09/02/16 03:35 Troponin I 0.03 ng/mL (0-1.5) 09/02/16 03:35 B-Natriuretic Peptide 184 pg/mL (0-79) H 08/31/16 14:05 Total Protein 6.4 g/dL (6.4-8.2) 09/02/16 03:35 Albumin 3.0 g/dL (3.4-5.0) L 09/02/16 03:35 Globulin 3.4 g/dL (2.5-4.5) 09/02/16 03:35 Albumin/Globulin Ratio 0.9 Ratio (1.1-2.1) L 09/02/16 03:35 Specimen Type Clean catch urine 09/01/16 09:07 Urine Color Yellow (YELLOW) 09/01/16 09:07 Urine Appearance Slightly hazy (CLEAR) 09/01/16 09:07 Urine pH 5.0 (5.0 - 8.0) 09/01/16 09:07 Ur Specific [place] 1.015 (1.000-1.030) 09/01/16 09:07 Urine Protein 2+ (NEGATIVE) 09/01/16 09:07 Urine Glucose (UA) 2+ (NEGATIVE) 09/01/16 09:07 Urine Ketones Negative (NEGATIVE) 09/01/16 09:07 Urine Occult Blood Negative (NEGATIVE) 09/01/16 09:07 Urine Nitrite Negative (NEGATIVE) 09/01/16 09:07 Urine Bilirubin Negative (NEGATIVE) 09/01/16 09:07 Urine Urobilinogen Normal (NORMAL) 09/01/16 09:07 Ur Leukocyte Esterase 3+ (NEGATIVE) 09/01/16 09:07 Urine RBC Rare /HPF (NEGATIVE) 09/01/16 09:07 Urine WBC 08 - 12 with clumps /HPF (NEGATIVE) 09/01/16 09:07 Ur Squamous Epith Cells Rare /HPF (NEGATIVE) 09/01/16 09:07 Amorphous Sediment 2+ /HPF (NEGATIVE) 09/01/16 09:07 Urine Bacteria Negative /HPF (NEGATIVE) 09/01/16 09:07 Urine Mucus Moderate /HPF (NEGATIVE) 09/01/16 09:07 Ur Culture Indicated? Yes/culture set up 09/01/16 09:07 - Plan (1) Acute exacerbation of chronic obstructive pulmonary disease (COPD) Status: Acute Plan: continue IV atbx, iv steroids, resp therapy, repeat am labs, and chest xray. bp and lipid control. continue home meds and glucose monitoring (2) Congestive heart disease Status: Acute Qualifiers: Congestive heart failure type: C Congestive heart failure chronicity: C (3) Diabetes mellitus Status: Chronic Qualifiers: Diabetes mellitus type: type 2 Diabetes mellitus complication status: without complication Diabetes mellitus complication detail: D Diabetic retinopathy severity: D Proliferative retinopathy type: P Diabetes mellitus macular edema: D Diabetes mellitus penitentiary insulin use: without wire stripper use Laterality: L Chronic kidney disease stage: C Qualified Code(s): E11.9 - Type 2 diabetes mellitus without complications (4) GERD (gastroesophageal reflux disease) Status: Chronic Qualifiers: Esophagitis presence: esophagitis presence not specified Qualified Code(s) : K21.9 - Gastro-esophageal reflux disease without esophagitis (5) History of CVA (cerebrovascular accident) Status: Chronic (6) Hypertension Status: Chronic Qualifiers: Hypertension type: essential hypertension Qualified Code(s): I10 - Essential (primary) hypertension
[2016-09-02] MEDS: CARDURA PO SCH (21:34)
[2016-09-02] MEDS: CELEXA PO SCH (21:34)
[2016-09-02] MEDS: SNACK - Diabetic Appropriate PO SCH (21:35)
[2016-09-02] MEDS: FLOMAX PO SCH (21:35)
[2016-09-03] MEDS: DUONEB 0.5 MG/3 MG NEB SCH ×6 (01:07→20:18)
[2016-09-03] MEDS: APRESOLINE TAB 25 MG PO SCH ×3 (05:17→21:07)
[2016-09-03 05:36] LABS: ALANINE AMINOTRANSFERASE 27 Units/L (12-78); ALBUMIN 2.8 g/dL (3.4-5.0); ALKALINE PHOSPHATASE 44 Units/L (46-116); ASPARTATE AMINO TRANSFERASE 14 Units/L (15-37); BLOOD UREA NITROGEN 30 mg/dL (7-18); CALCIUM 8.1 mg/dL (8.5-10.1); CARBON DIOXIDE 24.8 mmol/L (21-32); CHLORIDE 109 mmol/L (98-107); COR CA(FOR HYPOALB) 9.1 mg/dL (8.5-10.1); COR NA(FOR HYPERGLY) 146 mmol/L (136-145); CREATININE 1.27 mg/dL (0.70-1.30); GLUCOSE 232 mg/dL (65-99); SODIUM 143 mmol/L (136-145); TOTAL PROTEIN 6.1 g/dL (6.4-8.2); eGFR BLACK RACES > 60 (>60); eGFR NON BLACK RACES > 60 (>60)
[2016-09-03 05:40] LABS: BASOPHILS # (AUTO) 0.1 X10^3/uL (0.0-0.1); BASOPHILS % (AUTO) 0.5 % (0.2-1.0); EOSINOPHILS % (AUTO) 0.1 % (0.9-2.9); HEMATOCRIT 32.7 % (42.0-54.0); HEMOGLOBIN 11.1 g/dL (13.5-18.0); LYMPHOCYTES # (AUTO) 0.9 X10^3/uL (1.3-2.9); LYMPHOCYTES % (AUTO) 7.9 % (21.0-51.0); MEAN CORPUSCULAR HEMOGLOBIN 30.2 pg (27.0-34.0); MEAN CORPUSCULAR VOLUME 88.9 fL (80.0-100.0); MEAN PLATELET VOLUME 9.2 fL (7.4-11.0); MONOCYTES # (AUTO) 0.3 x10^3/uL (0.3-0.8); MONOCYTES % (AUTO) 3.2 % (0.0-13.0); NEUTROPHILS # (AUTO) 9.6 x10^3/uL (2.2-4.8); NEUTROPHILS % (AUTO) 88.3 % (42.0-75.0); PLATELET COUNT 167 X10^3/uL (150.0-450.0); RED BLOOD COUNT 3.68 X10^6/uL (4.7-6.0); RED CELL DISTRIBUTION WIDTH 14.8 % (11.6-16.5); WHITE BLOOD COUNT 10.8 X10^3/uL (3.6-10.0)
[2016-09-03] MEDS: HUMULIN R SUBCUT PRN ×4 (05:49→21:18)
--- NOTE | 2016-09-03 08:54 | RAD ---
HISTORY: CHF Study: Portable AP chest Comparison: 08/31/2016 Findings: The heart is mildly enlarged but less prominent. The pulmonary vessels are less prominent centrally . There is hazy bibasilar interstitial prominence which has decreased. No effusion is seen . The bon es are intact. IMPRESSION: Slight decrease in the heart size with resolving pulmonary congestion. Reported By:
[2016-09-03] MEDS: LEVAQUIN PREMIX IV 500 MG 500 MG/100 ML BAG IV SCH (08:55)
[2016-09-03] MEDS: ROCEPHIN VIAL 1 GM 1 GM in NS 50 ML IV + SPIKE MINIBAG* 50 ML IV SCH (08:55)
[2016-09-03] MEDS: GLUCOTROL XL PO SCH ×2 (08:56→21:07)
[2016-09-03] MEDS: CELEBREX PO SCH (08:56)
[2016-09-03] MEDS: COREG TAB 25 MG PO SCH ×2 (08:56→21:08)
[2016-09-03] MEDS: COZAAR PO SCH (08:57)
[2016-09-03] MEDS: CARDIZEM CD 240 MG PO SCH (08:57)
[2016-09-03] MEDS: MINOXIDIL PO SCH ×2 (08:57→21:07)
[2016-09-03] MEDS: SOLU-MEDROL 40 MG VIAL IVP SCH ×2 (08:57→21:08)
[2016-09-03] MEDS: ECOTRIN TAB 325 MG PO SCH (08:57)
[2016-09-03] MEDS ORDERED: COLACE CAP 100 MG PO PRN (12:55)
[2016-09-03] MEDS ORDERED: MILK OF MAGNESIA PO PRN (12:55)
[2016-09-03] MEDS: NS 1000 ML 1,000 ML IV SCH (13:41)
--- NOTE | 2016-09-03 18:42 | PCM.PROG ---
Progress Note - Progress Note for Day of Date: 09/03/16 - Subjective Subjective: The patient is a 60-year-old white male who presented to the [facility] emergency room complaining of minimal cough and congestion and progressive shortness of breath for the past 1-2 days. Pt was admitted on the evening of 08/31. Patient's chest x-ray revealed no acute infiltrates and minimal pulmonary edema. The patient has a history of congestive heart fair, coronary artery disease and COPD as well as other multiple medical problemssee past medical history below. The patient had taken a breathing treatment at home prior to arrival in the emergency room setting with no improvement in his shortness of breath. The patient also complained of chest discomfort which was also worse with cough and deep inspiration. Patient's initial EKG revealed nonspecific ST- T wave changes. Pt co improving SOB and continued mild wheezing, discussed need for future cardiac evaluation when resp status has improved. Pt co constipation this am. - Past Medical Family Social History Past Med/Fam/Surg Hx: No changes since H&P Allergies: Allergies Beeswax Allergy (Verified 08/31/16 13:40) Morphine Allergy (Verified 07/11/16 15:34) - Review of Systems ROS: No change since H&P - Vital Signs and I&O's Vital Signs: Temperature 97.7 F Pulse Rate [Right Brachial] 64 Pulse Rate [Left Brachial] 66 Pulse Rate 80 Respiratory Rate 20 Blood Pressure [Right Arm] 114/55 Blood Pressure [Left Arm] 129/64 O2 Sat by Pulse Oximetry 92 Intake and Output: Intake & Output 09/01/16 09/02/16 09/03/16 09/04/16 11:59 11:59 11:59 11:59 Intake Total 2923 1432 Output Total 950 700 Balance 1973 732 - Physical Exam Oriented: Normal Eyes: Normal Ear: Normal Nose: Normal Throat: Normal Respiratory: Generalized, Wheezes, Rhonchi Cardiovascular: Normal : Normal Auscultation: Bowel Sounds: Normal Tenderness: Normal Skin: Normal Musculoskeletal: Normal Psychiatric: Normal Mood Description: Calm Affect: Normal Speech Pattern: Clear, Appropriate - Laboratory and Diagnostics Result Diagrams: 09/03/16 03:50 09/03/16 03:50 Labs: Laboratory WBC 10.8 X10^3/uL (3.6-10.0) H 09/03/16 03:50 RBC 3.68 X10^6/uL (4.7-6.0) L 09/03/16 03:50 Hgb 11.1 g/dL (13.5-18.0) L 09/03/16 03:50 Hct 32.7 % (42.0-54.0) L 09/03/16 03:50 MCV 88.9 fL (80.0-100.0) 09/03/16 03:50 MCH 30.2 pg (27.0-34.0) 09/03/16 03:50 MCHC 34.0 g/dL (33.0-35.0) 09/03/16 03:50 RDW 14.8 % (11.6-16.5) 09/03/16 03:50 Plt Count 167 X10^3/uL (150.0-450.0) 09/03/16 03:50 MPV 9.2 fL (7.4-11.0) 09/03/16 03:50 Neut % 88.3 % (42.0-75.0) H 09/03/16 03:50 Lymph % 7.9 % (21.0-51.0) L 09/03/16 03:50 [place] % 3.2 % (0.0-13.0) 09/03/16 03:50 Eos % 0.1 % (0.9-2.9) L 09/03/16 03:50 Baso % 0.5 % (0.2-1.0) 09/03/16 03:50 Neut # 9.6 x10^3/uL (2.2-4.8) H 09/03/16 03:50 Lymph # 0.9 X10^3/uL (1.3-2.9) L 09/03/16 03:50 [place] # 0.3 x10^3/uL (0.3-0.8) 09/03/16 03:50 Eos # 0.0 x10^3/uL (0.0-0.2) 09/03/16 03:50 Baso # 0.1 X10^3/uL (0.0-0.1) 09/03/16 03:50 Absolute Nucleated RBC 0.5 /100WBC 09/03/16 03:50 INR Target Range - 08/31/16 14:15 INR 0.96 (0.8-1.3) 08/31/16 14:15 PTT 22.4 SECONDS (22.9-36.5) L 08/31/16 14:15 PTT Comment - 08/31/16 14:15 D-Dimer 833 ng/mL (0-400) H* 08/31/16 14:05 Sodium 143 mmol/L (136-145) 09/03/16 03:50 Corrected Sodium 146 mmol/L (136-145) H 09/03/16 03:50 Potassium 3.5 mmol/L (3.5-5.1) 09/03/16 03:50 Chloride 109 mmol/L (98-107) H 09/03/16 03:50 Carbon Dioxide 24.8 mmol/L (21-32) 09/03/16 03:50 BUN 30 mg/dL (7-18) H 09/03/16 03:50 Creatinine 1.27 mg/dL (0.70-1.30) 09/03/16 03:50 Est GFR (MDRD) Af Amer > 60 (>60) 09/03/16 03:50 Est GFR (MDRD) Non-Af > 60 (>60) 09/03/16 03:50 Glucose 232 mg/dL (65-99) H 09/03/16 03:50 Calcium 8.1 mg/dL (8.5-10.1) L 09/03/16 03:50 Corrected Calcium 9.1 mg/dL (8.5-10.1) 09/03/16 03:50 Magnesium 1.8 mg/dL (1.7-2.9) 08/31/16 14:15 Total Bilirubin 0.20 mg/dL (0.2-1.0) 09/03/16 03:50 AST 14 Units/L (15-37) L 09/03/16 03:50 ALT 27 Units/L (12-78) 09/03/16 03:50 Alkaline Phosphatase 44 Units/L (46-116) L 09/03/16 03:50 Creatine Kinase 69 Units/L (39-308) 09/02/16 03:35 CK-MB (CK-2) 1.7 ng/mL (0-4.0) 09/02/16 03:35 CK/CKMB % Calc 2.5 % (<4) 09/02/16 03:35 Troponin I 0.03 ng/mL (0-1.5) 09/02/16 03:35 B-Natriuretic Peptide 184 pg/mL (0-79) H 08/31/16 14:05 Total Protein 6.1 g/dL (6.4-8.2) L 09/03/16 03:50 Albumin 2.8 g/dL (3.4-5.0) L 09/03/16 03:50 Globulin 3.3 g/dL (2.5-4.5) 09/03/16 03:50 Albumin/Globulin Ratio 0.8 Ratio (1.1-2.1) L 09/03/16 03:50 Specimen Type Clean catch urine 09/01/16 09:07 Urine Color Yellow (YELLOW) 09/01/16 09:07 Urine Appearance Slightly hazy (CLEAR) 09/01/16 09:07 Urine pH 5.0 (5.0 - 8.0) 09/01/16 09:07 Ur Specific [place] 1.015 (1.000-1.030) 09/01/16 09:07 Urine Protein 2+ (NEGATIVE) 09/01/16 09:07 Urine Glucose (UA) 2+ (NEGATIVE) 09/01/16 09:07 Urine Ketones Negative (NEGATIVE) 09/01/16 09:07 Urine Occult Blood Negative (NEGATIVE) 09/01/16 09:07 Urine Nitrite Negative (NEGATIVE) 09/01/16 09:07 Urine Bilirubin Negative (NEGATIVE) 09/01/16 09:07 Urine Urobilinogen Normal (NORMAL) 09/01/16 09:07 Ur Leukocyte Esterase 3+ (NEGATIVE) 09/01/16 09:07 Urine RBC Rare /HPF (NEGATIVE) 09/01/16 09:07 Urine WBC 08 - 12 with clumps /HPF (NEGATIVE) 09/01/16 09:07 Ur Squamous Epith Cells Rare /HPF (NEGATIVE) 09/01/16 09:07 Amorphous Sediment 2+ /HPF (NEGATIVE) 09/01/16 09:07 Urine Bacteria Negative /HPF (NEGATIVE) 09/01/16 09:07 Urine Mucus Moderate /HPF (NEGATIVE) 09/01/16 09:07 Ur Culture Indicated? Yes/culture set up 09/01/16 09:07 - Plan (1) Acute exacerbation of chronic obstructive pulmonary disease (COPD) Status: Acute Plan: continue IV atbx, resp therapy, repeat am labs, and chest xray. bp and lipid control. continue home meds and glucose monitoring (2) Congestive heart disease Status: Acute Qualifiers: Congestive heart failure type: C Congestive heart failure chronicity: C (3) Diabetes mellitus Status: Chronic Qualifiers: Diabetes mellitus type: type 2 Diabetes mellitus complication status: without complication Diabetes mellitus complication detail: D Diabetic retinopathy severity: D Proliferative retinopathy type: P Diabetes mellitus macular edema: D Diabetes mellitus fci insulin use: without termite control servicer use Laterality: L Chronic kidney disease stage: C Qualified Code(s): E11.9 - Type 2 diabetes mellitus without complications (4) GERD (gastroesophageal reflux disease) Status: Chronic Qualifiers: Esophagitis presence: esophagitis presence not specified Qualified Code(s) : K21.9 - Gastro-esophageal reflux disease without esophagitis (5) History of CVA (cerebrovascular accident) Status: Chronic (6) Hypertension Status: Chronic Qualifiers: Hypertension type: essential hypertension Qualified Code(s): I10 - Essential (primary) hypertension
[2016-09-03] MEDS: CARDURA PO SCH (21:06)
[2016-09-03] MEDS: FLOMAX PO SCH (21:07)
[2016-09-03] MEDS: SNACK - Diabetic Appropriate PO SCH (21:08)
[2016-09-03] MEDS: CELEXA PO SCH (21:17)
[2016-09-04] MEDS: DUONEB 0.5 MG/3 MG NEB SCH ×3 (00:56→09:46)
[2016-09-04 05:30] LABS: BASOPHILS % (AUTO) 0.5 % (0.2-1.0); EOSINOPHILS % (AUTO) 0.5 % (0.9-2.9); HEMATOCRIT 32.9 % (42.0-54.0); HEMOGLOBIN 11.3 g/dL (13.5-18.0); LYMPHOCYTES # (AUTO) 0.7 X10^3/uL (1.3-2.9); LYMPHOCYTES % (AUTO) 8.1 % (21.0-51.0); MEAN CORPUSCULAR HEMOGLOBIN 30.4 pg (27.0-34.0); MEAN CORPUSCULAR HGB CONC 34.5 g/dL (33.0-35.0); MEAN CORPUSCULAR VOLUME 88.2 fL (80.0-100.0); MEAN PLATELET VOLUME 9.4 fL (7.4-11.0); MONOCYTES # (AUTO) 0.3 x10^3/uL (0.3-0.8); MONOCYTES % (AUTO) 3.2 % (0.0-13.0); NEUTROPHILS # (AUTO) 7.9 x10^3/uL (2.2-4.8); NEUTROPHILS % (AUTO) 87.7 % (42.0-75.0); PLATELET COUNT 152 X10^3/uL (150.0-450.0); RED BLOOD COUNT 3.73 X10^6/uL (4.7-6.0); RED CELL DISTRIBUTION WIDTH 14.6 % (11.6-16.5)
[2016-09-04 05:33] LABS: ALANINE AMINOTRANSFERASE 38 Units/L (12-78); ALBUMIN 2.7 g/dL (3.4-5.0); ALKALINE PHOSPHATASE 41 Units/L (46-116); ASPARTATE AMINO TRANSFERASE 22 Units/L (15-37); BLOOD UREA NITROGEN 33 mg/dL (7-18); CALCIUM 8.1 mg/dL (8.5-10.1); CARBON DIOXIDE 25.3 mmol/L (21-32); CHLORIDE 109 mmol/L (98-107); COR CA(FOR HYPOALB) 9.1 mg/dL (8.5-10.1); COR NA(FOR HYPERGLY) 145 mmol/L (136-145); CREATININE 1.21 mg/dL (0.70-1.30); GLUCOSE 192 mg/dL (65-99); SODIUM 143 mmol/L (136-145); eGFR BLACK RACES > 60 (>60); eGFR NON BLACK RACES > 60 (>60)
[2016-09-04] MEDS: APRESOLINE TAB 25 MG PO SCH (05:58)
[2016-09-04] MEDS: NS 1000 ML 1,000 ML IV SCH (05:59)
[2016-09-04] MEDS: HUMULIN R SUBCUT PRN (06:22)
--- NOTE | 2016-09-04 07:30 | RAD ---
HISTORY: Respiratory distress, shortness of breath Study: Single-view chest, done portably Comparison: September 03, 2016 Technique: the costophrenic angles are cut off the image on both sides. Findings: Trachea is midline. There is cardiomegaly with aortic uncoiling. There is pulmonary vascular congest ion bilaterally, without significant change compared to yesterday's study. Osseous structures are in tact. IMPRESSION: Cardiomegaly with pulmonary vascular congestion. No significant change compared to the prior study. Reported By:
[2016-09-04] MEDS: CELEBREX PO SCH (09:25)
[2016-09-04] MEDS: COREG TAB 25 MG PO SCH (09:26)
[2016-09-04] MEDS: GLUCOTROL XL PO SCH (09:26)
[2016-09-04] MEDS: MINOXIDIL PO SCH (09:26)
[2016-09-04] MEDS: ECOTRIN TAB 325 MG PO SCH (09:27)
[2016-09-04] MEDS: COZAAR PO SCH (09:27)
[2016-09-04] MEDS: CARDIZEM CD 240 MG PO SCH (09:27)
[2016-09-04] MEDS: SOLU-MEDROL 40 MG VIAL IVP SCH (09:28)
[2016-09-04] MEDS: ROCEPHIN VIAL 1 GM 1 GM in NS 50 ML IV + SPIKE MINIBAG* 50 ML IV SCH (09:28)
[2016-09-04 11:00] VITALS: BP 157/71
== END 2016-09-04 11:20 | disposition home or self-care (01) | DRG 204 ==
LOC: ER 13:27 → OBS 18:13 → OBSVTOIN 09-02 13:00 → MED/SURG 09-02 17:55
PROVIDERS: ADMIT Internal Medicine; ATTEND Internal Medicine
DX: R06.09 Other forms of dyspnea (principal); J44.9 Chronic obstructive pulmonary disease, unspecified; I50.9 Heart failure, unspecified; R06.02 Shortness of breath; R07.2 Precordial pain; K21.9 Gastro-esophageal reflux disease without esophagitis; E11.65 Type 2 diabetes mellitus with hyperglycemia; E03.8 Other specified hypothyroidism; I10 Essential (primary) hypertension; R26.89 Other abnormalities of gait and mobility
CPT/HCPCS: 36415; 71010; 71275; 80048; 80053; 81001; 82550; 82553; 83735; 83880; 84484; 85025; 85378; 85610; 85730; 87086; 93005; 93010; 94640; 94760; 96365; 96367; 96374; 96375; 99284; A4216; A4222; G8987; G8988; G0378; J0696; J1815; J1885; J1940; J1956; J2920; J2930; J7620

== ENCOUNTER 2016-10-24 11:39 | Emergency (ER) | payer OTHER ==
[2016-10-24 11:48] VITALS: BMI 37.7
--- NOTE | 2016-10-24 12:19 | DR.GENAD ---
HPI - PCP Primary Care Physician: EMELYN - Complaint/Symptoms Chief Complaint Doctors Comments: "Blacking out"" Chief Complaint:: HAVE EPOSIDES OF BLACKING OUT THE PASS COUPLE OF DAYS Self Treatment fo Chief Complaint: CHECKING BLOOD PRESSURE AND BLOOD SUGAR. - Nurses notes reviewed Nurses Notes Review: Yes - Source History Provided: Patient, EMS - Mode of Arrival Mode of Arrival: EMS - Timing Onset of Chief Complaint: 10/23/16 Came on: Suddenly (multiple episodes) - Duration Duration: Intermittent Duration: Minutes - Severity Severity: Moderate PMH - PMH Past Medical History: Yes Past Medical History: Angina, Anxiety, Asthma, COPD, Coronary Artery Disease, CVA, Depression, Diabetes, Dyslipidemia, GERD, Hypertension, [place] Past Surgical History: Yes Surgical History: Angioplasty/Stents, Appendectomy - Family History History of Family Medical Conditions: Yes Family Medical History: Diabetes Mellitus, Cancer, [place], Coronary Artery Disease, Heart Failure, Hypertension - Social History Does patient currently use any type of tobacco product: Yes Type of Tobacco Use: Cigarettes Does any household member use tobacco: Yes Alcohol Use: None Do you use any recreational Drugs:: No Lives With: Significant Other Lives Where: Home - infectious screening In the last 2 months have you had wt loss of >10#?: NO Have you had fever, night sweats or hemotysis?: No Have you traveled outside the country in the last 6 months?: No Isolation: Standard ROS - Review of Systems Constitutional: No Symptoms Reported Eyes: No Symptoms Reported ENTM: No Symptoms Reported Respiratoy: No Symptoms Reported Cardiovascular: No Symptoms Reported Gastrointestinal/Abdominal: No Symptoms Reported Genitourinary: No Symptoms Reported Neurological: Dizziness, Other Musculoskeletal: Muscle Stiffness Integumentary: No Symptoms Reported Hematologic/Lymphatic: No Symptoms Reported Endocrine: No Symptoms Reported Psychiatric: No Symptoms Reported All Other Systems: Reviewed and Negative PE - Vital Signs Vitals: Temperature 97.8 F Pulse Rate 62 Respiratory Rate 22 Blood Pressure [Right Arm] 157/71 Blood Pressure [Left Arm] 129/64 Blood Pressure 175/79 O2 Sat by Pulse Oximetry 96 - General Limitations: No Limitations General Appearance: Alert, In No Apparent Distress - Head Head Exam: Normal Inspection - Eyes Eye exam: Normal Appearance - ENT ENT Exam: Normal Exam External Ear Exam: Normal External Inspection Mouth Exam: Normal Inspection Throat Exam: Normal Inspection - Neck Neck Exam: Normal Inspection - Chest Chest Inspection: Normal Inspection - Respiratory Respiratory Exam: Normal Lung Sounds Bilat - Cardiovascular Cardiovascular Exam: Regular Rate, Normal Rhythm, Normal Heart Sounds - Abdominal Exam Abdominal Exam: Normal Inspection - Extremities Extremities Exam: Other (left sided hemiparesis) - Back Back Exam: Normal Inspection - Neurologic Neurological Exam: Alert, Oriented X3 MDM - Differential Diagnosis Differential Diagnosis: syncope, ROR - Labs Reviewed Result Diagrams: 10/24/16 12:53 10/24/16 12:53 Laboratory: WBC 7.0 X10^3/uL (3.6-10.0) 10/24/16 12:53 RBC 4.20 X10^6/uL (4.7-6.0) L 10/24/16 12:53 Hgb 12.6 g/dL (13.5-18.0) L 10/24/16 12:53 Hct 36.5 % (42.0-54.0) L 10/24/16 12:53 MCV 86.8 fL (80.0-100.0) 10/24/16 12:53 MCH 29.9 pg (27.0-34.0) 10/24/16 12:53 MCHC 34.4 g/dL (33.0-35.0) 10/24/16 12:53 RDW 13.8 % (11.6-16.5) 10/24/16 12:53 Plt Count 135 X10^3/uL (150.0-450.0) L 10/24/16 12:53 MPV 8.4 fL (7.4-11.0) 10/24/16 12:53 Neut % 59.0 % (42.0-75.0) 10/24/16 12:53 Lymph % 23.8 % (21.0-51.0) 10/24/16 12:53 [place] % 6.7 % (0.0-13.0) 10/24/16 12:53 Eos % 9.3 % (0.9-2.9) H 10/24/16 12:53 Baso % 1.2 % (0.2-1.0) H 10/24/16 12:53 Neut # 4.2 x10^3/uL (2.2-4.8) 10/24/16 12:53 Lymph # 1.7 X10^3/uL (1.3-2.9) 10/24/16 12:53 [place] # 0.5 x10^3/uL (0.3-0.8) 10/24/16 12:53 Eos # 0.7 x10^3/uL (0.0-0.2) H 10/24/16 12:53 Baso # 0.1 X10^3/uL (0.0-0.1) 10/24/16 12:53 Absolute Nucleated RBC 0.1 /100WBC 10/24/16 12:53 Sodium 143 mmol/L (136-145) 10/24/16 12:53 Corrected Sodium 144 mmol/L (136-145) 10/24/16 12:53 Potassium 3.6 mmol/L (3.5-5.1) 10/24/16 12:53 Chloride 107 mmol/L (98-107) 10/24/16 12:53 Carbon Dioxide 26.1 mmol/L (21-32) 10/24/16 12:53 BUN 14 mg/dL (7-18) 10/24/16 12:53 Creatinine 1.16 mg/dL (0.70-1.30) 10/24/16 12:53 Est GFR (MDRD) Af Amer > 60 (>60) 10/24/16 12:53 Est GFR (MDRD) Non-Af > 60 (>60) 10/24/16 12:53 Glucose 139 mg/dL (65-99) H 10/24/16 12:53 Calcium 8.7 mg/dL (8.5-10.1) 10/24/16 12:53 Corrected Calcium TNP 10/24/16 12:53 Total Bilirubin 0.40 mg/dL (0.2-1.0) 10/24/16 12:53 AST 13 Units/L (15-37) L 10/24/16 12:53 ALT 23 Units/L (12-78) 10/24/16 12:53 Alkaline Phosphatase 49 Units/L (46-116) 10/24/16 12:53 Total Protein 6.9 g/dL (6.4-8.2) 10/24/16 12:53 Albumin 3.4 g/dL (3.4-5.0) 10/24/16 12:53 Globulin 3.5 g/dL (2.5-4.5) 10/24/16 12:53 Albumin/Globulin Ratio 1.0 Ratio (1.1-2.1) L 10/24/16 12:53 Specimen Type Clean catch urine 10/24/16 12:23 Urine Color Yellow (YELLOW) 10/24/16 12:23 Urine Appearance Clear (CLEAR) 10/24/16 12:23 Urine pH 6.0 (5.0 - 8.0) 10/24/16 12:23 Ur Specific [place] 1.010 (1.000-1.030) 10/24/16 12:23 Urine Protein Negative (NEGATIVE) 10/24/16 12:23 Urine Glucose (UA) Negative (NEGATIVE) 10/24/16 12:23 Urine Ketones Negative (NEGATIVE) 10/24/16 12:23 Urine Occult Blood Negative (NEGATIVE) 10/24/16 12:23 Urine Nitrite Negative (NEGATIVE) 10/24/16 12:23 Urine Bilirubin Negative (NEGATIVE) 10/24/16 12:23 Urine Urobilinogen Normal (NORMAL) 10/24/16 12:23 Ur Leukocyte Esterase Negative (NEGATIVE) 10/24/16 12:23 Urine RBC 0 /HPF (NEGATIVE) 10/24/16 12:23 Urine WBC 0 /HPF (NEGATIVE) 10/24/16 12:23 Ur Squamous Epith Cells Rare /HPF (NEGATIVE) 10/24/16 12:23 Urine Bacteria Negative /HPF (NEGATIVE) 10/24/16 12:23 Ur Culture Indicated? No/not indicated 10/24/16 12:23 - Diagnosis Discharge Problem: Syncope, Polypharmacy - Discharge Plan Disposition: 01 HOME, SELF-CARE Condition: Stable - Follow ups/Referrals Follow ups/Referrals: DARYL DUNAWAY [Primary Care Provider] - 3 days - Instructions Instructions: Syncope, [id number]
[2016-10-24 12:37] LABS: BILIRUBIN,URINE NEGATIVE (NEGATIVE); BLOOD/HEMOGLOBIN,URINE NEGATIVE (NEGATIVE); GLUCOSE, URINE NEGATIVE (NEGATIVE); KETONES,URINE NEGATIVE (NEGATIVE); LEUKOCYTE ESTERASE ,URINE NEGATIVE (NEGATIVE); NITRITES,URINE NEGATIVE (NEGATIVE); PROTEIN,URINE NEGATIVE (NEGATIVE); UROBILINOGEN,URINE NORMAL (NORMAL)
--- NOTE | 2016-10-24 12:38 | CT ---
HISTORY: Syncope Study: CT brain without contrast Comparison: 07/11/2016 Technique: Multiple axial images of the brain were obtained from the skull base to the vertex without administr ation of IV contrast. Dose reduction techniques including Automated Exposure Control (AEC) and adju stment of mA and kV were utilized. Findings: There is moderate to advanced generalized cerebral volume loss. There are multifocal areas of subcor tical and periventricular white matter hypoattenuation suggesting advanced microvascular ischemic ch anges as well as scattered hypodensities seen in the bilateral centrum semiovale, right parietal lob e, right brain stem and bilateral cerebellar hemispheres suggesting old infarctions. No evidence of acute hemorrhage, midline shift, mass effect or abnormal extra-axial fluid collection. The ventricu lar system is symmetric and nondilated. The soft tissues and osseous structures are unremarkable. T he visualized paranasal sinuses are clear. Prominent vascular calcifications are seen in the left ve rtebral artery. IMPRESSION: 1. Advanced chronic ischemic changes and atrophy as described. No acute intracranial abnormality iker ntified. Reported By:
[2016-10-24 12:44] LABS: APPEARANCE,URINE CLEAR (CLEAR); BACTERIA,URINE NEGATIVE /HPF (NEGATIVE); COLOR,URINE YELLOW (YELLOW); RBC,URINE 0 /HPF (NEGATIVE); SQUAMOUS EPITHELIAL CELL,UR RARE /HPF (NEGATIVE)
[2016-10-24 13:06] LABS: BASOPHILS # (AUTO) 0.1 X10^3/uL (0.0-0.1); BASOPHILS % (AUTO) 1.2 % (0.2-1.0); EOSINOPHILS # (AUTO) 0.7 x10^3/uL (0.0-0.2); EOSINOPHILS % (AUTO) 9.3 % (0.9-2.9); HEMATOCRIT 36.5 % (42.0-54.0); HEMOGLOBIN 12.6 g/dL (13.5-18.0); LYMPHOCYTES # (AUTO) 1.7 X10^3/uL (1.3-2.9); LYMPHOCYTES % (AUTO) 23.8 % (21.0-51.0); MEAN CORPUSCULAR HEMOGLOBIN 29.9 pg (27.0-34.0); MEAN CORPUSCULAR HGB CONC 34.4 g/dL (33.0-35.0); MEAN CORPUSCULAR VOLUME 86.8 fL (80.0-100.0); MEAN PLATELET VOLUME 8.4 fL (7.4-11.0); MONOCYTES # (AUTO) 0.5 x10^3/uL (0.3-0.8); MONOCYTES % (AUTO) 6.7 % (0.0-13.0); NEUTROPHILS # (AUTO) 4.2 x10^3/uL (2.2-4.8); PLATELET COUNT 135 X10^3/uL (150.0-450.0); RED CELL DISTRIBUTION WIDTH 13.8 % (11.6-16.5)
[2016-10-24 13:15] LABS: ALANINE AMINOTRANSFERASE 23 Units/L (12-78); ALBUMIN 3.4 g/dL (3.4-5.0); ALKALINE PHOSPHATASE 49 Units/L (46-116); ASPARTATE AMINO TRANSFERASE 13 Units/L (15-37); BLOOD UREA NITROGEN 14 mg/dL (7-18); CALCIUM 8.7 mg/dL (8.5-10.1); CARBON DIOXIDE 26.1 mmol/L (21-32); CHLORIDE 107 mmol/L (98-107); COR NA(FOR HYPERGLY) 144 mmol/L (136-145); CREATININE 1.16 mg/dL (0.70-1.30); GLUCOSE 139 mg/dL (65-99); SODIUM 143 mmol/L (136-145); TOTAL PROTEIN 6.9 g/dL (6.4-8.2); eGFR BLACK RACES > 60 (>60); eGFR NON BLACK RACES > 60 (>60)
[2016-10-24 14:54] VITALS: BP 155/80
== END 2016-10-24 15:01 | disposition home or self-care (01) ==
LOC: ER 11:58
DX: R55 Syncope and collapse (principal)
CPT/HCPCS: 36415; 70450; 80053; 81001; 85025; 99282

== ENCOUNTER 2016-11-13 13:38 | Emergency (ER) | payer OTHER ==
[2016-11-13 13:45] VITALS: BMI 37.7
--- NOTE | 2016-11-13 13:45 | DR.GENAD ---
HPI - Complaint/Symptoms Chief Complaint Doctors Comments: patient presents to the ED via EMS secondary to fever. He reports that his temp was 102.2. He denies urinary frequency, headache,vomiting or diarrhea. He admits to cough, negative cysphagia. PMH - PMH Past Medical History: Angina, Anxiety, Asthma, COPD, Coronary Artery Disease, CVA, Depression, Diabetes, Dyslipidemia, GERD, Hypertension, HI Past Surgical History: Yes Surgical History: Angioplasty/Stents, Appendectomy - Family History Family Medical History: Diabetes Mellitus, Cancer, HI, Coronary Artery Disease, Heart Failure, Hypertension - Social History Do you use any recreational Drugs:: No ROS - Review of Systems Eyes: No Symptoms Reported ENTM: No Symptoms Reported Respiratoy: No Symptoms Reported Cardiovascular: No Symptoms Reported Gastrointestinal/Abdominal: No Symptoms Reported Genitourinary: No Symptoms Reported Neurological: No Symptoms Reported Musculoskeletal: Knee (left pain) Integumentary: No Symptoms Reported Hematologic/Lymphatic: No Symptoms Reported Endocrine: No Symptoms Reported Psychiatric: No Symptoms Reported All Other Systems: Reviewed and Negative PE - Vital Signs Vitals: Temperature 99.5 F Pulse Rate [Right Radial] 86 Respiratory Rate 20 Blood Pressure [Right Arm] 105/55 Blood Pressure [Left Arm] 129/64 Blood Pressure 155/80 O2 Sat by Pulse Oximetry 90 - General Limitations: Physical Limitation (Left ileana-paresis) General Appearance: Alert, In No Apparent Distress - Head Head Exam: Normal Inspection, Atraumatic - Eyes Eye exam: Normal Appearance, PERRL - ENT ENT Exam: Normal Exam External Ear Exam: Normal External Inspection TM/Canal Exam: Bilateral Normal Nose Exam: Normal Nose Exam Mouth Exam: Normal Inspection Throat Exam: Normal Inspection - Neck Neck Exam: Normal Inspection - Chest Chest Inspection: Normal Inspection - Respiratory Respiratory Exam: Normal Lung Sounds Bilat Respiratory Exam: Bilateral Clear to Auscultation - Cardiovascular Cardiovascular Exam: Regular Rate, Normal Rhythm - Abdominal Exam Abdominal Exam: Normal Inspection Abdominal Tenderness: negative: RUQ, RLQ, LUQ, LLQ, Epigastrium, Suprapubic, Diffuse, Mild, Moderate, Severe, Other - Extremities Extremities Exam: Joint Swelling (left knee) - Back Back Exam: Normal Inspection - Neurologic Neurological Exam: Alert, Oriented X3, CN II-XII Intact - Psychiatric Psychiatric Exam: Normal Affect, Normal Mood - Skin Skin Exam: Warm, Dry, Intact ROR - Labs Reviewed Laboratory Results Reviewed?: Yes (Urine: Nitrite +,Leukocyte esterace 3+, WBC 20-25; strep positive) Result Diagrams: 11/13/16 14:16 11/13/16 14:01 Laboratory: WBC 17.5 X10^3/uL (3.6-10.0) H 11/13/16 14:16 RBC 4.01 X10^6/uL (4.7-6.0) L 11/13/16 14:16 Hgb 11.8 g/dL (13.5-18.0) L 11/13/16 14:16 Hct 34.9 % (42.0-54.0) L 11/13/16 14:16 MCV 87.0 fL (80.0-100.0) 11/13/16 14:16 MCH 29.4 pg (27.0-34.0) 11/13/16 14:16 MCHC 33.8 g/dL (33.0-35.0) 11/13/16 14:16 RDW 13.3 % (11.6-16.5) 11/13/16 14:16 Plt Count 144 X10^3/uL (150.0-450.0) L 11/13/16 14:16 MPV 8.6 fL (7.4-11.0) 11/13/16 14:16 Neut % 80.9 % (42.0-75.0) H 11/13/16 14:16 Lymph % 6.9 % (21.0-51.0) L 11/13/16 14:16 [place] % 10.9 % (0.0-13.0) 11/13/16 14:16 Eos % 0.6 % (0.9-2.9) L 11/13/16 14:16 Baso % 0.7 % (0.2-1.0) 11/13/16 14:16 Neut # 14.2 x10^3/uL (2.2-4.8) H 11/13/16 14:16 Lymph # 1.2 X10^3/uL (1.3-2.9) L 11/13/16 14:16 [place] # 1.9 x10^3/uL (0.3-0.8) H 11/13/16 14:16 Eos # 0.1 x10^3/uL (0.0-0.2) 11/13/16 14:16 Baso # 0.1 X10^3/uL (0.0-0.1) 11/13/16 14:16 Absolute Nucleated RBC 0.0 /100WBC 11/13/16 14:16 Sodium 141 mmol/L (136-145) 11/13/16 14:01 Corrected Sodium TNP 11/13/16 14:01 Potassium 3.3 mmol/L (3.5-5.1) L 11/13/16 14:01 Chloride 107 mmol/L (98-107) 11/13/16 14:01 Carbon Dioxide 24.4 mmol/L (21-32) 11/13/16 14:01 BUN 25 mg/dL (7-18) H 11/13/16 14:01 Creatinine 1.41 mg/dL (0.70-1.30) H 11/13/16 14:01 Est GFR (MDRD) Af Amer > 60 (>60) 11/13/16 14:01 Est GFR (MDRD) Non-Af 54 (>60) L 11/13/16 14:01 Glucose 108 mg/dL (65-99) H 11/13/16 14:01 Calcium 8.5 mg/dL (8.5-10.1) 11/13/16 14:01 Corrected Calcium 9.5 mg/dL (8.5-10.1) 11/13/16 14:01 Total Bilirubin 0.80 mg/dL (0.2-1.0) 11/13/16 14:01 AST 19 Units/L (15-37) 11/13/16 14:01 ALT 20 Units/L (12-78) 11/13/16 14:01 Alkaline Phosphatase 50 Units/L (46-116) 11/13/16 14:01 C-Reactive Protein 160.10 mg/L (0-3.0) H 11/13/16 14:01 Total Protein 6.2 g/dL (6.4-8.2) L 11/13/16 14:01 Albumin 2.8 g/dL (3.4-5.0) L 11/13/16 14:01 Globulin 3.4 g/dL (2.5-4.5) 11/13/16 14:01 Albumin/Globulin Ratio 0.8 Ratio (1.1-2.1) L 11/13/16 14:01 Specimen Type Clean catch urine 11/13/16 14:10 Urine Color Yellow (YELLOW) 11/13/16 14:10 Urine Appearance Cloudy (CLEAR) 11/13/16 14:10 Urine pH 5.0 (5.0 - 8.0) 11/13/16 14:10 Ur Specific [place] 1.015 (1.000-1.030) 11/13/16 14:10 Urine Protein 2+ (NEGATIVE) 11/13/16 14:10 Urine Glucose (UA) Negative (NEGATIVE) 11/13/16 14:10 Urine Ketones Negative (NEGATIVE) 11/13/16 14:10 Urine Occult Blood 1+ (NEGATIVE) 11/13/16 14:10 Urine Nitrite Positive (NEGATIVE) 11/13/16 14:10 Urine Bilirubin Negative (NEGATIVE) 11/13/16 14:10 Urine Urobilinogen 1+ (NORMAL) 11/13/16 14:10 Ur Leukocyte Esterase 3+ (NEGATIVE) 11/13/16 14:10 Urine RBC 0-2 /HPF (NEGATIVE) 11/13/16 14:10 Urine WBC 20-25 /HPF (NEGATIVE) 11/13/16 14:10 Ur Squamous Epith Cells Negative /HPF (NEGATIVE) 11/13/16 14:10 Urine Bacteria 4+ /HPF (NEGATIVE) 11/13/16 14:10 Ur Culture Indicated? Yes/culture set up 11/13/16 14:10 Streptococcus Screen Positive (NEGATIVE) A 11/13/16 14:18 - XRAY XRAY Interpreted by: Radiologist (Chest: No acute cardiopulmonary abnormality) - Diagnosis Discharge Problem: Strep pharyngitis, Arthralgia of left knee UTI (urinary tract infection) Qualifiers: Urinary tract infection type: acute cystitis Hematuria presence: with hematuria Qualified Code(s): N30.01 - Acute cystitis with hematuria - Discharge Plan Condition: Stable - Follow ups/Referrals Follow ups/Referrals: RONI KAM [Primary Care Provider] - 3 days - Instructions
[2016-11-13 13:50] VITALS: BP 105/55
[2016-11-13 14:18] LABS: BILIRUBIN,URINE NEGATIVE (NEGATIVE); BLOOD/HEMOGLOBIN,URINE 1+ (NEGATIVE); GLUCOSE, URINE NEGATIVE (NEGATIVE); KETONES,URINE NEGATIVE (NEGATIVE); LEUKOCYTE ESTERASE ,URINE 3+ (NEGATIVE); NITRITES,URINE POSITIVE (NEGATIVE); PROTEIN,URINE 2+ (NEGATIVE); UROBILINOGEN,URINE 1+ (NORMAL)
[2016-11-13 14:24] LABS: BASOPHILS # (AUTO) 0.1 X10^3/uL (0.0-0.1); BASOPHILS % (AUTO) 0.7 % (0.2-1.0); EOSINOPHILS # (AUTO) 0.1 x10^3/uL (0.0-0.2); EOSINOPHILS % (AUTO) 0.6 % (0.9-2.9); HEMATOCRIT 34.9 % (42.0-54.0); HEMOGLOBIN 11.8 g/dL (13.5-18.0); LYMPHOCYTES # (AUTO) 1.2 X10^3/uL (1.3-2.9); LYMPHOCYTES % (AUTO) 6.9 % (21.0-51.0); MEAN CORPUSCULAR HEMOGLOBIN 29.4 pg (27.0-34.0); MEAN CORPUSCULAR HGB CONC 33.8 g/dL (33.0-35.0); MEAN PLATELET VOLUME 8.6 fL (7.4-11.0); MONOCYTES # (AUTO) 1.9 x10^3/uL (0.3-0.8); MONOCYTES % (AUTO) 10.9 % (0.0-13.0); NEUTROPHILS # (AUTO) 14.2 x10^3/uL (2.2-4.8); NEUTROPHILS % (AUTO) 80.9 % (42.0-75.0); PLATELET COUNT 144 X10^3/uL (150.0-450.0); RED BLOOD COUNT 4.01 X10^6/uL (4.7-6.0); RED CELL DISTRIBUTION WIDTH 13.3 % (11.6-16.5); WHITE BLOOD COUNT 17.5 X10^3/uL (3.6-10.0)
[2016-11-13 14:29] LABS: APPEARANCE,URINE CLOUDY (CLEAR); BACTERIA,URINE 4+ /HPF (NEGATIVE); COLOR,URINE YELLOW (YELLOW); RBC,URINE 0-2 /HPF (NEGATIVE); SQUAMOUS EPITHELIAL CELL,UR NEGATIVE /HPF (NEGATIVE)
[2016-11-13] MEDS ORDERED: BICILLIN L-A IM ONE ×2 (14:40→14:45)
[2016-11-13 14:43] LABS: ALANINE AMINOTRANSFERASE 20 Units/L (12-78); ALBUMIN 2.8 g/dL (3.4-5.0); ALKALINE PHOSPHATASE 50 Units/L (46-116); ASPARTATE AMINO TRANSFERASE 19 Units/L (15-37); BLOOD UREA NITROGEN 25 mg/dL (7-18); CALCIUM 8.5 mg/dL (8.5-10.1); CARBON DIOXIDE 24.4 mmol/L (21-32); CHLORIDE 107 mmol/L (98-107); COR CA(FOR HYPOALB) 9.5 mg/dL (8.5-10.1); CREATININE 1.41 mg/dL (0.70-1.30); GLUCOSE 108 mg/dL (65-99); SODIUM 141 mmol/L (136-145); TOTAL PROTEIN 6.2 g/dL (6.4-8.2); eGFR BLACK RACES > 60 (>60); eGFR NON BLACK RACES 54 (>60)
--- NOTE | 2016-11-13 14:45 | RAD ---
HISTORY: Fever, cough. Study: Portable chest. Comparison: Chest x-ray dated September 04, 2016. Findings: The trachea is midline. The cardiac silhouette is enlarged but unchanged. Prominent perihilar vasc ular with diffuse interstitial markings appears unchanged given technique. No obvious focal consolid ation, pleural effusion, or pneumothorax. The bony thorax is unremarkable. IMPRESSION: 1. No acute cardiopulmonary disease. Reported By:
--- NOTE | 2016-11-13 14:51 | RAD ---
HISTORY: Pain and swelling. Study: Three views of the left knee. Comparison: None. Findings: No evidence for acute cortical disruption or dislocation. Mild patellofemoral spurring and medial j oint space narrowing. Suggestion of chondrocalcinosis of the menisci. Small knee effusion. Vascular calcifications are seen. IMPRESSION: No acute osseous abnormality. Reported By:
== END 2016-11-13 15:25 | disposition home or self-care (01) ==
LOC: ER 13:40
DX: N30.01 Acute cystitis with hematuria (principal); J02.0 Streptococcal pharyngitis; M25.562 Pain in left knee; B96.1 Klebsiella pneumoniae [K. pneumoniae] as the cause of diseases classified elsewhere
CPT/HCPCS: 36415; 71010; 73560; 80053; 81001; 85025; 86140; 87040; 87086; 87088; 87186; 87880; 96372; 99283; J0570